=== PATIENT | male | born 1945 | race Caucasian/White ===

== ENCOUNTER 2023-04-24 11:44 | Outpatient (CLI) | payer OTHER, SELFPAY ==
--- NOTE | 2023-04-24 12:21 | XR_ITS ---
WS: [id number] EXAMINATION: XR chest 2V* [id number] REASON FOR EXAM: BRONCHITIS COMPARISON: None available. ORDER DATE: 04/24/2023 12:45 PM FINDINGS: There are ill marginated numerous nodular infiltrates or nodules throughout both lungs the cardiac an d mediastinal outlines are unremarkable. There are no significant pleural effusions . No significant abnormalities are noted in the spine or remainder of the bony thorax. IMPRESSION: Nodules or nodular infiltrates throughout the lungs recommend clinical correlation for in fection versus metastatic disease.
== END 2023-04-24 11:45 | disposition home or self-care (01) ==
PROVIDERS: Visit Provider Nurse Practitioner Family
DX: J40 Bronchitis, not specified as acute or chronic (principal); R91.8 Other nonspecific abnormal finding of lung field
CPT/HCPCS: 71046

== ENCOUNTER 2024-01-30 11:18 | Outpatient (CLI) | payer OTHER, SELFPAY ==
--- NOTE | 2024-01-30 11:25 | XR_ITS ---
WS: [id number] Exam: [place] [id number] Date/Time of Exam: 01/30/2024 11:38 AM Reason For Exam: PAIN IN R SHOULDER No fracture or bone destruction. Articular relationships are intact. XR/[place] [id number] IMPRESSION: 1. Negative RIGHT scapula.
--- NOTE | 2024-01-30 11:25 | XR_ITS ---
WS: [id number] Exam: XR shoulder RT min 2V* [id number] Date/Time of Exam: 01/30/2024 11:38 AM Reason For Exam: PAIN IN R SHOULDER No fracture or dislocation. The joints are relatively well-maintained. Minimal soft tissue calcificat ion along the humeral head that might indicate calcific tendinitis or bursitis. Numerous surgical cli ps and leads are seen at the base of the neck on the RIGHT. XR/XR shoulder RT min 2V* [id number] IMPRESSION: 1. Small soft tissue calcification along the humeral head that might be seen wi th calcific tendinitis or bursitis. No other significant finding.
== END 2024-01-30 11:19 | disposition home or self-care (01) ==
LOC: RAD 11:21
PROVIDERS: Visit Provider Obstetrics & Gynecology
DX: M25.511 Pain in right shoulder (principal); R05.9 Cough, unspecified
CPT/HCPCS: 73010; 73030

== ENCOUNTER → 2025-05-16 12:24 | Outpatient (BNVA) | payer OTHER, SELFPAY | PROVIDERS: Visit Provider Registered Nurse Neonatal Intensive Care | DX: J02.9 Acute pharyngitis, unspecified (principal) | CPT/HCPCS: 87071; 87880 ==